=== PATIENT | male | born 2000 | race African-American/Black ===

== ENCOUNTER 2018-02-13 11:30 | Emergency (ER) | payer OTHER ==
[2018-02-13 11:35] VITALS: RESP 18
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
[2018-02-13 13:00] VITALS: BP 122/80; PULSE 76; TEMP 98
== END 2018-02-13 12:59 | disposition home or self-care (01) ==
LOC: EC 11:30
DX: S60.221A Contusion of right hand, initial encounter (principal); F17.200 Nicotine dependence, unspecified, uncomplicated; Z88.0 Allergy status to penicillin; W22.8XXA Striking against or struck by other objects, initial encounter; Y92.009 Unspecified place in unspecified non-institutional (private) residence as the place of occurrence of the external cause
CPT/HCPCS: 99283